=== PATIENT | male | born 1990 | race Caucasian/White ===

== ENCOUNTER 2023-02-18 20:48 | Emergency (ER) | payer SELFPAY ==
[2023-02-18] MEDS ORDERED: CEFTRIAXONE 1000 MG/VIAL ONE (22:44)
[2023-02-18] MEDS ORDERED: MORPHINE 4 MG/ML SYR ONE ×2 (22:44→23:30)
[2023-02-18] MEDS ORDERED: NA CHLORIDE 0.9% 100 ML ONE (22:44)
[2023-02-18] MEDS ORDERED: ONDANSETRON 4 MG/2 ML VIAL ONE (22:44)
[2023-02-19 00:32] LABS: Absolute Lymphocytes (CBC) 0.9 K/uL (0.7-4.9); Hematocrit 40.9 % (39.6-49.0); MCV 90.8 fL (80-100); MPV 7.8 fL (7.6-11.3)
[2023-02-19] MEDS ORDERED: FENTANYL CITR 100 MCG/2 ML ONE ×2 (00:38→02:18)
[2023-02-19] MEDS ORDERED: NA CHLORIDE 0.9% 1,000 ML ONE (00:38)
[2023-02-19 01:01] LABS: Albumin 3.6 g/dL (3.4-5.0); Bilirubin Total 1.1 mg/dL (0.2-1.0); Potassium 4.1 mEq/L (3.5-5.1); Protein, Total 7.8 g/dL (6.4-8.2)
--- NOTE | 2023-02-19 01:01 | EDPHYS ---
Physician Documentation [facility] Name: Moises Knutson Age: 32 yrs Sex: Male : 1990 Arrival Date: 02/18/2023 Time: 20:48 Bed 15 Private MD: ED Physician Luis Enrique Hodge HPI: 02/19 05:06 This 32 yrs old Male presents to ER via Ambulatory with complaints of Toothache. kdr 05:06 Patient states that since last , he has had increasing pain to the left side of kdr his face and mandible. He states that he cannot swallow or eat at this time. He denies fever. Patient appears to be mild to moderately uncomfortable.. 19:28 Patient states that he has had increased pain to the left side of his face left neck kdr and extending down into his anterior chest. This is been ongoing for about 3 to 4 days. He denies fever. States he is unable to eat or swallow at this time.. Onset: The symptoms/episode began/occurred gradually, 4 day(s) ago. Severity of symptoms: At their worst the symptoms were moderate severe just prior to arrival, in the emergency department the symptoms are unchanged. The patient has not experienced similar symptoms in the past. The patient has not recently seen a physician. Patient is noted to have poor dentition but does not eyes any prior episodes like the one that he presents with today. Historical: - Allergies: 02/18 21:07 No Known Allergies; ha1 - PMHx: 21:07 Migraine; Asthma; ha1 - PSHx: 21:07 None; ha1 - Immunization history:: Adult Immunizations unknown. - Social history:: Smoking status: Patient denies any tobacco usage or history of. ROS: 02/19 19:28 Constitutional: Negative for fever, chills, and weight loss, Eyes: Negative for injury, kdr pain, redness, and discharge, Neck: Negative for injury, pain, and swelling, Cardiovascular: Negative for chest pain, palpitations, and edema, Respiratory: Negative for shortness of breath, cough, wheezing, and pleuritic chest pain. ENT: Positive for dental pain, difficulty swallowing, Left mandibular pain and submandibular pain.. Exam: 19:28 Constitutional: This is a well developed, well nourished patient who is awake, alert, kdr and in no acute distress. Head/Face: Normocephalic, atraumatic. Eyes: Pupils equal round and reactive to light, extra-ocular motions intact. Lids and lashes normal. Conjunctiva and sclera are non-icteric and not injected. Cornea within normal limits. Periorbital areas with no swelling, redness, or edema. 19:28 Neck: External neck: tenderness, that is mild, of the left lateral aspect of neck and left anterior aspect of neck. Vital Signs: 02/18 21:02 BP 133 / 89; Pulse 103; Resp 16 S; Pulse Ox 100% on R/A; Weight 66.22 kg; Height 5 ft. ha1 6 in. ; Pain 10/10; 02/19 00:00 BP 133 / 91; Pulse 105; Resp 18 S; Pulse Ox 100% on R/A; ha1 00:47 BP 137 / 81; Pulse 78; Resp 16; Temp 98.2; Pulse Ox 100% ; Pain 10/10; kd3 01:50 BP 147 / 89; Pulse 75; Resp 16; Pulse Ox 100% on R/A; ha1 02:17 BP 143 / 66; Pulse 72; Resp 16 S; Pulse Ox 100% on R/A; ha1 02/18 21:02 Body Mass Index 23.56 (66.22 kg, 167.64 cm) ha1 02/18 21:02 Pain Scale: Adult ha1 00:47 Pain Scale: Adult kd3 MDM: 01:00 Patient medically screened. kdr 19:28 Data reviewed: vital signs, nurses notes, lab test result(s), radiologic studies. kdr Consideration of Admission/Observation Patient was admitted/placed on observation. Escalation of care including admission/observation considered. Due to the nature of the illness (pterygoid mass/abscess and dental involvement) patient will require transfer to higher level of care. [facility] was not able to provide this care and so the patient was transferred subsequently to [place]. 02/18 23:30 Order name: CBC with Diff; Complete Time: 00:42 kdr 02/18 23:30 Order name: CMP kdr 02/18 22:28 Order name: CT Soft Tissue Neck W/contr kdr Administered Medications: 02/18 22:34 Drug: morphine IVP or IV 4 mg Route: IVP; Infused Over: 4 mins; Site: left antecubital; mw 22:34 Drug: Ondansetron IVP 4 mg Route: IVP; Site: left antecubital; mw 22:34 Drug: Rocephin - Rocephin (cefTRIAXone) IVPB 1 grams Route: IVPB; Infused Over: 30 mw mins; Site: left antecubital; 23:28 Drug: morphine IVP or IV 4 mg Route: IVP; Infused Over: 4 mins; Site: left antecubital; mw 02/19 00:46 Drug: NS 0.9% IV 1000 ml Route: IV; Rate: 1 bolus; Site: left antecubital; kd3 00:47 Drug: fentaNYL (PF) IVP 50 mcg Route: IVP; Site: left antecubital; kd3 02:00 Drug: Ondansetron IVP 4 mg Route: IVP; Site: left antecubital; ha1 02:17 Follow up: Response: No adverse reaction ha1 02:03 Drug: fentaNYL (PF) IVP 50 mcg Route: IVP; Site: left antecubital; ha1 02:17 Follow up: Response: No adverse reaction; Pain is decreased; RASS: Alert and Calm (0) ha1 Disposition Summary: 02/19/23 01:00 Transfer Ordered Transfer Location: [facility] kdr Reason: Higher level of care kdr Condition: Fair kdr Problem: new kdr Symptoms: have improved kdr Accepting Physician: lurdes(02/19/23 02:17) sb4 Diagnosis - Trismus, left pterygoid muscle abscess/mass. Left mandibular pain, small kdr periapical abscess involving the left mandibular second molar Forms: - Medication Reconciliation Form kdr - SBAR form kdr Signatures: Dispatcher [employer] EDKika Wills RN RN Luis Enrique Hodge MD MD kdr Susan Pelaez RN RN kd3 Laura Barker RN RN ha1 Kennedi Hatfield PA-C PA-C sb4 Corrections: (The following items were deleted from the chart) : 01:00 lurdes kdr sb4
--- NOTE | 2023-02-19 01:01 | ER ---
Nurse's Notes [facility] Name: Moises Knutson Age: 32 yrs Sex: Male : 1990 Arrival Date: 02/18/2023 Time: 20:48 Bed 15 Private MD: Diagnosis: Trismus, left pterygoid muscle abscess/mass. Left mandibular pain, small periapical abscess involving the left mandibular second molar Presentation: 02/18 21:02 Chief complaint: Patient states: I believe my left lymph node of my mandible is swollen ha1 and it is very painful to swallow or eat. Coronavirus screen: Vaccine status: Patient reports being unvaccinated. Ebola Screen: No symptoms or risks identified at this time. Initial Sepsis Screen: Does the patient meet any 2 criteria? No. Patient's initial sepsis screen is negative. Does the patient have a suspected source of infection? No. Patient's initial sepsis screen is negative. Risk Assessment: Do you want to hurt yourself or someone else? Patient reports no desire to harm self or others. Onset of symptoms was February 18, 2023. 21:02 Method Of Arrival: Ambulatory ha1 21:02 Acuity: MIKAEL 4 ha1 Triage Assessment: 21:07 General: Appears uncomfortable, Behavior is calm, cooperative. Pain: Complains of pain ha1 in left side of mundible and neck Pain currently is 10 out of 10 on a pain scale. EENT: Reports difficulty swallowing since two days ago. Neuro: Level of Consciousness is awake, alert, obeys commands, Oriented to person, place, time, situation. Cardiovascular: Patient's skin is warm and dry. Respiratory: Airway is patent Respiratory effort is even, unlabored, Respiratory pattern is regular, symmetrical. Musculoskeletal: Circulation, motion, and sensation intact. Range of motion: intact in all extremities. Historical: - Allergies: 21:07 No Known Allergies; ha1 - PMHx: 21:07 Migraine; Asthma; ha1 - PSHx: 21:07 None; ha1 - Immunization history:: Adult Immunizations unknown. - Social history:: Smoking status: Patient denies any tobacco usage or history of. Screenin:12 [facility] ED Fall Risk Assessment (Adult) History of falling in the last 3 months, ha1 including since admission No falls in past 3 months (0 pts) Confusion or Disorientation No (0 pts) Intoxicated or Sedated No (0 pts) Impaired Gait No (0 pts) Score/Fall Risk Level 0 - 2 = Low Risk Oriented to surroundings, Maintained a safe environment, Educated pt \T\ family on fall prevention, incl call for assistance when getting out of bed. 02/19 02:14 Abuse screen: Denies threats or abuse. Denies injuries from another. Nutritional ha1 screening: No deficits noted. Tuberculosis screening: No symptoms or risk factors identified. Assessment: 00:01 Reassessment: No changes from previously documented assessment. Pain: Complains of pain mw in left jaw Pain currently is 10 out of 10 on a pain scale. Neuro: No deficits noted. Cardiovascular: No deficits noted. Respiratory: No deficits noted. GI: No deficits noted. : No signs and/or symptoms were reported regarding the genitourinary system. EENT: No deficits noted. Derm: No deficits noted. Musculoskeletal: No deficits noted. 00:45 Reassessment: see triage assessment. ha1 00:57 Reassessment: Patient and/or family updated on plan of care and expected duration. Pain ha1 level reassessed. Patient is alert, oriented x 3, equal unlabored respirations, skin warm/dry/pink. pain 7/10 Patient states symptoms have improved. 01:50 Reassessment: Report given to ARMIN Lucero. ha1 01:54 Reassessment: Patient and/or family updated on plan of care and expected duration. Pain ha1 level reassessed. Patient is alert, oriented x 3, equal unlabored respirations, skin warm/dry/pink. pain 4/10. Vital Signs: 02/18 21:02 BP 133 / 89; Pulse 103; Resp 16 S; Pulse Ox 100% on R/A; Weight 66.22 kg; Height 5 ft. ha1 6 in. ; Pain 10/10; 02/19 00:00 BP 133 / 91; Pulse 105; Resp 18 S; Pulse Ox 100% on R/A; ha1 00:47 BP 137 / 81; Pulse 78; Resp 16; Temp 98.2; Pulse Ox 100% ; Pain 10/10; kd3 01:50 BP 147 / 89; Pulse 75; Resp 16; Pulse Ox 100% on R/A; ha1 02:17 BP 143 / 66; Pulse 72; Resp 16 S; Pulse Ox 100% on R/A; ha1 02/18 21:02 Body Mass Index 23.56 (66.22 kg, 167.64 cm) ha1 02/18 21:02 Pain Scale: Adult ha1 00:47 Pain Scale: Adult kd3 ED Course: 02/18 20:49 Patient arrived in ED. ja2 20:49 Luis Enrique Hodge MD is Attending Physician. kdr 21:07 Triage completed. ha1 21:12 Arm band placed on right wrist. ha1 23:55 CT Soft Tissue Neck W/contr In Process Unspecified. EDMS 02/19 00:[address] Scan. mw 00:01 Patient has correct armband on for positive identification. Side rails up X2. Noise mw minimized. Lights dimmed. Hot Wet compress applied to left jaw. 00:01 No provider procedures requiring assistance completed. Inserted saline lock: 20 gauge mw in left antecubital area, using aseptic technique. 00:31 CMP Sent. oe 00:32 CBC with Diff Sent. oe 00:45 Report received from received report from zac Anandhousehold cook. ha1 00:47 Head of bed lowered. cold compress applied. kd3 00:50 Initiated transfer to [facility], spoke with Phani, he stated they do not have OMFS. wm 00:53 Initiated transfer to [facility], spoke with Rosemary. wm 00:57 Laura Barker, ARMIN is Primary Nurse. ha1 01:26 Pt accepted for transfer by Dr. Beach. wm 02:15 Patient transferred, IV remains in place. ha1 Administered Medications: 02/18 22:34 Drug: morphine IVP or IV 4 mg Route: IVP; Infused Over: 4 mins; Site: left antecubital; mw 22:34 Drug: Ondansetron IVP 4 mg Route: IVP; Site: left antecubital; mw 22:34 Drug: Rocephin - Rocephin (cefTRIAXone) IVPB 1 grams Route: IVPB; Infused Over: 30 mw mins; Site: left antecubital; 23:28 Drug: morphine IVP or IV 4 mg Route: IVP; Infused Over: 4 mins; Site: left antecubital; mw 02/19 00:46 Drug: NS 0.9% IV 1000 ml Route: IV; Rate: 1 bolus; Site: left antecubital; kd3 00:47 Drug: fentaNYL (PF) IVP 50 mcg Route: IVP; Site: left antecubital; kd3 02:00 Drug: Ondansetron IVP 4 mg Route: IVP; Site: left antecubital; ha1 02:17 Follow up: Response: No adverse reaction ha1 02:03 Drug: fentaNYL (PF) IVP 50 mcg Route: IVP; Site: left antecubital; ha1 02:17 Follow up: Response: No adverse reaction; Pain is decreased; RASS: Alert and Calm (0) ha1 Medication: 00:01 VIS not applicable for this client. Outcome: 01:00 ER care complete, transfer ordered by . kdr 02:15 Transferred by ground EMS to [facility]. ha1 02:15 Condition: stable 02:15 Discharge instructions given to patient, family, Instructed on the need for transfer, Demonstrated understanding of instructions. 02:17 Patient left the ED. sb4 Signatures: Dispatcher [employer] EDMS Kika López RN RN Luis Enrique Hodge MD MD kdr Espinosa, Orlando oe Marsh, Wendy Irena Felipe Kyli, RN RN kd3 Laura Barker RN RN ha1 Kennedi Hatfield PA-C PALisha sb4
[2023-02-19] MEDS ORDERED: ONDANSETRON 4 MG/2 ML VIAL ONE (02:18)
[2023-02-19 02:44] VITALS: TEMP 98.2
[2023-02-19 02:55] VITALS: BP 129/81; O2SAT 98
--- NOTE | 2023-02-20 14:43 | RAD REPORT ---
EXAM DESCRIPTION: CT - Soft Tissue Neck W/Contr - 02/19/2023 5:05 am CLINICAL HISTORY: The patient is 32 years old and is Male; FACIAL PAIN TECHNIQUE: Axial computed tomography images of the neck with intravenous contrast. Sagittal and co dalila reformatted images were created and reviewed. This CT exam was performed using one or more of the following dose reduction techniques: automated exposure control, adjustment of the mA and/or k V according to patient size, and/or use of iterative reconstruction technique. COMPARISON: No relevant prior studies available. FINDINGS: OROPHARYNX: Unremarkable. No significant tonsillar enlargement. No peritonsillar abs cess. HYPOPHARYNX: Unremarkable. LARYNX: Unremarkable. Normal epiglottis. TRACHEA: Unremarkable. RETROPHARYNGEAL SPACE: Unremarkable. SUBMANDIBULAR/PAROTID GLANDS: Unremarkable. Glands are normal in size. THYROID: Unremarkable. No enlarged or calcified nodules. BONES/JOINTS: No acute fracture. SOFT TISSUES: Enlargement and edema of the left medial pterygoid muscle is present. Associated il l-defined low attenuation within the left medial pterygoid measuring 1.8 x 1.3 x 4.2 cm is present. Edema of the soft tissues of the left face is noted. VASCULATURE: Unremarkable. Normal in course and caliber. LYMPH NODES: Enlarged left submental and anterior cervical chain lymph nodes are present. DENTAL: Small periapical lucency surrounding the left mandibular second molar tooth is noted. LUNG APICES: The lung apices are clear. IMPRESSION: 1. Edematous and enlarged left medial pterygoid muscle. Ill-defined low attenuating ma sslike collection within the left medial pterygoid concerning for phlegmon/abscess formation. Associa bill reactive adenopathy is noted. Recommend close follow-up to exclude possibility of underlying mass . 2. Findings suggest small periapical abscess involving the left mandibular second molar tooth. Electronically signed by: Leia Rodriguez MD 02/19/2023 12:18 AM CDT Due to temporary technical issues with the PACS/Fluency reporting system, reports are being signed by the in house radiologist without review as a courtesy to ensure prompt reporting. The interpreting r adiologist is fully responsible for the content of the report.
== END 2023-02-19 02:17 | disposition short-term general hospital (02) ==
LOC: ER 20:48
DX: K04.7 Periapical abscess without sinus (principal); R25.2 Cramp and spasm
CPT/HCPCS: 36415; 70491; 80053; 85025; 96374; 96375; 99285; J0696; J2405; J3010; J7030; Q9967